=== PATIENT | female | born 1955 | race Caucasian/White ===

== ENCOUNTER 2017-01-09 15:09 | Outpatient (CLI) | payer OTHER ==
--- NOTE | 2017-01-25 09:38 | MMO ---
BILATERAL SCREENING MAMMOGRAM: Date: 01/09/17 INDICATION: Annual exam. COMPARISON: Prior exam dated 01/01/14 and diagnostic evaluation dated 02/03/14. FINDINGS: Interpretation of this exam was assisted with computer-aided detection. Scattered fibroglandular upper mattaponi ents are present bilaterally. Small mass seen within the right breast 3:30 position, mid to posterior depth, is no longer present. There is a biopsy clip near this location. This was reported to have been a benign lesion. No new suspicious mass, cluster of microcalcifications, or area of architectural distortion is eviden t. IMPRESSION: BIRADS 2: Benign Finding(s) Recommend routine annual mammographic screening. POS: [facility]
== END 2017-01-09 15:10 | disposition home or self-care (01) ==
LOC: SCSMAMMO 15:09
PROVIDERS: ATTEND Nurse Practitioner
DX: Z00.00 Encounter for general adult medical examination without abnormal findings (principal)
CPT/HCPCS: 77067; G0202

== ENCOUNTER 2017-11-21 06:35 | Day surgery (SDC) | payer OTHER ==
[2017-11-20 13:01] VITALS: BMI 30.4
[2017-11-21] MEDS ORDERED: Oxymetazoline HCl 0.05% ( 15 ML ) ONE ×2 (07:28→08:46)
[2017-11-21] MEDS ORDERED: Lidocaine 1% w/Epinephrine 1:100K 30 ML VIAL ONE (08:46)
[2017-11-21] MEDS ORDERED: Bacitracin Zinc Ointment 30 gm TUBE ONE (08:46)
[2017-11-21] MEDS ORDERED: Fentanyl 100 MCG/2 ML VIAL ONE (08:51)
[2017-11-21] MEDS ORDERED: Succinylcholine Chloride 20 MG/ML 10 ml SYRINGE FS ONE (11:35)
[2017-11-21] MEDS ORDERED: Lidocaine 1% PF 5 ML VIAL ONE (11:35)
[2017-11-21] MEDS ORDERED: Dexamethasone 20 MG/5 ML VIAL ONE (11:35)
[2017-11-21] MEDS ORDERED: Ondansetron HCl/PF 4 MG/2 ML Vial ONE (11:35)
[2017-11-21] MEDS ORDERED: PROPOFOL 200 MG/20 ML VIAL ONE (11:35)
--- NOTE | 2017-11-21 12:09 | OP ---
PREOPERATIVE DIAGNOSES: 1. Chronic rhinosinusitis. 2. Bilateral inferior turbinate hypertrophy. 3. Nasal obstruction. POSTOPERATIVE DIAGNOSES: 1. Chronic rhinosinusitis. 2. Bilateral inferior turbinate hypertrophy. 3. Nasal obstruction. PROCEDURES: 1. Bilateral endoscopic sinus surgery, total ethmoidectomies. 2. Bilateral endoscopic sinus surgery, maxillary antrostomies. 3. Bilateral endoscopic sinus surgery, sphenoidotomies. 4. Bilateral inferior turbinate submucosal resection. SURGEON: Woody Mandel M.D. ESTIMATED BLOOD LOSS: 15 mL COMPLICATIONS: None. ANESTHESIA: GETA. PROCEDURE: The patient was taken to the operating room and placed supine on the table. General endo tracheal anesthesia obtained by the Anesthesia staff. Tube was secured left lower lip. The patient was then placed in the beach chair position. Afrin pledgets were then placed in the nasal cavity. F ollowing this, the patient was prepped and draped in standard nasal procedure. 1% lidocaine with 1:1 00,000 epinephrine was then injected into the inferior turbinates, middle turbinates and lateral nasa l wall bilaterally. Following this, middle turbinates were gently medialized exposing the uncinate p rocess on this ball-ended probe was then used to anteriorly fracture the uncinate process. The curve d microdebrider and upbiting Blakesley were then used to remove the uncinate process bilaterally. Th is exposed the area of the maxillary sinus ostia, which was then visualized and identified using the ball-ended probe. Following this, the straight microdebrider and curved microdebrider were used to g ently widen the maxillary sinus ostia bilaterally. Following this, the ethmoidal bulla was identifie d bilaterally and was punctured on its medial and inferior aspect with the 0-degree microdebrider. T he ethmoidal bulla was then removed using the microdebrider and the upbiting Blakesley forceps. Foll owing this, the grand lamella was identified and was punctured into the posterior ethmoidal cells. W orking from posterior to anterior, the ethmoidal cells were opened in a mucosal-sparing technique. F ollowing this, the sphenoid sinus ostia were visualized, were gently punctured using the 0-degree katerina rodebrider and the sphenoidotomies were gently widened medially and inferiorly using the microdebride r bilaterally. Following this, 45-degree scope and the upbiting curved microdebrider were then used to further open the frontal cells and anterior ethmoidal cells. The patient tolerated procedure well . Inferior turbinates were then punctured on their anterior and inferior aspect with submucosal micr odebrider and submucosal resection was performed of the anterior inferior portions of the inferior tu rbinates. Nasal cavity was irrigated. MeroPacks were placed.
== END 2017-11-21 11:44 | disposition home or self-care (01) ==
LOC: SDC 06:35
PROVIDERS: ATTEND Otolaryngology Plastic Surgery within the Head & Neck
PROC: 09BU8ZZ Excision of Right Ethmoid Sinus, Via Natural or Artificial Opening Endoscopic (ICD-10-PCS; principal; 2017-11-21)
PROC: 09BV8ZZ Excision of Left Ethmoid Sinus, Via Natural or Artificial Opening Endoscopic (ICD-10-PCS; principal; 2017-11-21)
DX: J32.4 Chronic pansinusitis (principal); J34.3 Hypertrophy of nasal turbinates
CPT/HCPCS: 85014; 93005; 93010; J1100; J2001; J2405; J2704; J3010